=== PATIENT | male | born 1980 | race Two or more races ===

== ENCOUNTER 2018-04-03 13:22 | Emergency (ER) | payer MEDICAID ==
[~2018-04-03] VITALS: Ht 177.8 cm; Wt 83.9 kg
[~2018-04-03 13:22] MED LIST: IBUP-1953 PO
[2018-04-03] MEDS ORDERED: LIDOCAINE 1%-EPI 1:100,000 20 ML VIAL TP ONE (13:45)
[2018-04-03] MEDS ORDERED: IBUPROFEN 800 MG TABLET ONE (14:10)
--- NOTE | 2018-04-03 14:13 | NUR ---
Patient discharged to home in stable conditon. Written and verbal after care instructions given. Patient verbalizes understanding of instructions.
[2018-04-03] MEDS ORDERED: IBUPROFEN 800 MG TABLET PO ONE (14:15)
== END 2018-04-03 14:16 | disposition home or self-care (01) ==
LOC: ER 13:24
DX: S67.191A Crushing injury of left index finger, initial encounter (principal); L02.512 Cutaneous abscess of left hand; F17.200 Nicotine dependence, unspecified, uncomplicated; W20.8XXA Other cause of strike by thrown, projected or falling object, initial encounter; Y93.89 Activity, other specified; Y92.89 Other specified places as the place of occurrence of the external cause; Y99.8 Other external cause status
CPT/HCPCS: 10060; 73140; 99284; A4217; A4663; J3490

== ENCOUNTER 2018-12-06 07:27 | Emergency (ER) | payer MEDICAID, MEDICARE ==
[~2018-12-06] VITALS: Ht 180.3 cm; Wt 99.8 kg
--- NOTE | 2018-12-06 07:46 | NUR ---
Patient discharged to home in stable conditon. Written and verbal after care instructions given. Patient verbalizes understanding of instructions.
== END 2018-12-06 07:48 | disposition home or self-care (01) ==
LOC: ER 07:27
DX: L73.9 Follicular disorder, unspecified (principal); I25.2 Old myocardial infarction; F17.200 Nicotine dependence, unspecified, uncomplicated; Z79.1 Long term (current) use of non-steroidal anti-inflammatories (NSAID)
CPT/HCPCS: A4663

== ENCOUNTER 2019-10-11 08:34 | Emergency (ER) | payer MEDICAID, MEDICARE ==
[~2019-10-11] VITALS: Ht 180.3 cm; Wt 99.8 kg
[2019-10-11] MEDS ORDERED: HYDROCODONE/APAP 10-325 MG TABLET PO ONE (09:00)
--- NOTE | 2019-10-11 09:00 | NUR ---
Patient given written and verbal discharge instructions. Patient verbalizes understanding of instructions. Patient is ambulatory with steady gait. Refuses offer of skilled nursing placement. Patient given list of available shelters in surrounding area.
[2019-10-11] MEDS ORDERED: HYDROCODONE/APAP 10-325 MG TABLET ONE (09:06)
== END 2019-10-11 09:10 | disposition home or self-care (01) ==
LOC: ER 08:34
DX: K08.89 Other specified disorders of teeth and supporting structures (principal); K08.409 Partial loss of teeth, unspecified cause, unspecified class; I25.2 Old myocardial infarction; Z59.0 Homelessness
CPT/HCPCS: A4663

== ENCOUNTER 2019-10-11 21:46 | Emergency (ER) | payer MEDICAID ==
[~2019-10-11] VITALS: Ht 177.8 cm; Wt 90.7 kg
--- NOTE | 2019-10-11 22:10 | NUR ---
Dr. Erazo on bedside for MSE.
[2019-10-11] MEDS ORDERED: IBUPROFEN 800 MG TABLET ONE (22:22)
[2019-10-11] MEDS ORDERED: CLINDAMYCIN HCL 300 MG CAPSULE ONE (22:22)
[2019-10-11 22:29] VITALS: BP 135/9
--- NOTE | 2019-10-11 22:29 | NUR ---
Patient discharged to home in stable conditon. Written and verbal after care instructions given. Patient verbalizes understanding of instructions. Pt ambulated out of the ER with steady gait. All belongings with pt.
[2019-10-11] MEDS ORDERED: IBUPROFEN 800 MG TABLET PO ONE (22:30)
[2019-10-11] MEDS ORDERED: CLINDAMYCIN HCL 150 MG CAPSULE PO ONE (22:30)
== END 2019-10-11 22:30 | disposition home or self-care (01) ==
LOC: ER 21:46
DX: K08.89 Other specified disorders of teeth and supporting structures (principal); K02.9 Dental caries, unspecified; F17.200 Nicotine dependence, unspecified, uncomplicated; Z79.899 Other long term (current) drug therapy
CPT/HCPCS: A4663

== ENCOUNTER 2019-12-20 01:05 | Emergency (ER) | payer MEDICAID ==
[~2019-12-20] VITALS: Ht 177.8 cm; Wt 90.7 kg
--- NOTE | 2019-12-20 02:00 | NUR ---
Dr. Erazo at bedside for MSE.
[2019-12-20] MEDS ORDERED: CLINDAMYCIN HCL 150 MG CAPSULE ONE (02:28)
[2019-12-20] MEDS ORDERED: IBUPROFEN 800 MG TABLET ONE (02:28)
[2019-12-20] MEDS ORDERED: FAMOTIDINE 20 MG TABLET ONE (02:29)
[2019-12-20] MEDS ORDERED: FAMOTIDINE 20 MG TABLET PO ONE (02:30)
[2019-12-20] MEDS ORDERED: CLINDAMYCIN HCL 150 MG CAPSULE PO ONE (02:30)
[2019-12-20] MEDS ORDERED: IBUPROFEN 800 MG TABLET PO ONE (02:30)
--- NOTE | 2019-12-20 03:30 | NUR ---
Note enriqueone in EDM - 12/20/19 at 0332 by FANY Patient discharged to home in stable condition. Written and verbal after care instructions given. Patient verbalizes understanding of instructions. Stressed follow up or return to ER for worsening s/s. Patient ambulated out of ER with steady gait, no acute signs of distress, VSS, all belongings taken.
--- NOTE | 2019-12-20 03:32 | NUR ---
Patient given written and verbal discharge instructions. Patient verbalizes understanding of instructions. Patient is ambulatory with steady gait. Refuses offer of residential placement. Patient given list of available shelters in surrounding area. VSS, no acute signs of distress, all belongings taken, Patient provided with juice and water per patient request, will arrange own transportation out of hospital, refuses all other services at this time.
[2019-12-20 03:35] VITALS: BP 128/60
== END 2019-12-20 03:35 | disposition home or self-care (01) ==
LOC: ER 01:06
DX: K02.9 Dental caries, unspecified (principal); R10.13 Epigastric pain; F15.10 Other stimulant abuse, uncomplicated; Z59.0 Homelessness; I25.2 Old myocardial infarction; Z87.19 Personal history of other diseases of the digestive system; F17.210 Nicotine dependence, cigarettes, uncomplicated
CPT/HCPCS: A4663

== ENCOUNTER 2020-01-21 19:59 | Emergency (ER) | payer SELFPAY | END 2020-01-21 20:17 | disposition left against medical advice (07) | LOC: ER 20:15 | DX: Z75.3 Unavailability and inaccessibility of health-care facilities (principal); Z59.0 Homelessness ==

== ENCOUNTER 2021-12-24 02:28 | Emergency (ER) | payer OTHER ==
[~2021-12-24] VITALS: Ht 177.8 cm; Wt 99.8 kg
[2021-12-24] MEDS ORDERED: LIDOCAINE 2%-EPI 1:100,000 20 ML VIAL IJ ONE (03:00)
[2021-12-24] MEDS ORDERED: OXYCODONE/APAP 5-325 MG TABLET PO ONE (03:00)
[2021-12-24] MEDS ORDERED: LIDOCAINE 2%-EPI 1:100,000 20 ML VIAL ONE (03:01)
[2021-12-24] MEDS ORDERED: OXYCODONE/APAP 5-325 MG TABLET ONE (03:05)
--- NOTE | 2021-12-24 03:23 | NUR ---
Dr siegel at bedside for I&D
[2021-12-24] MEDS ORDERED: OXYC-128 PO (03:51)
[2021-12-24] MEDS ORDERED: SULF1TAB48 PO (03:51)
[2021-12-24] MEDS ORDERED: SULFAMETH/TRIMETH 800/160 MG TABLET PO ONE (04:00)
[2021-12-24] MEDS ORDERED: SULFAMETH/TRIMETH 800/160 MG TABLET ONE (04:01)
--- NOTE | 2021-12-24 04:05 | NUR ---
Applied dressing on I/D site as ordered.
--- NOTE | 2021-12-24 04:10 | NUR ---
Patient given written and verbal discharge instructions. Patient verbalizes understanding of instructions. Patient is ambulatory with steady gait. Refuses offer of [facility] placement. Patient given list of available shelters in surrounding area.
[2021-12-24 04:11] VITALS: BP 135/77
== END 2021-12-24 04:11 | disposition home or self-care (01) ==
LOC: ER 02:34
DX: L02.31 Cutaneous abscess of buttock (principal); L03.317 Cellulitis of buttock; Z59.00 Homelessness unspecified; F17.200 Nicotine dependence, unspecified, uncomplicated; I25.2 Old myocardial infarction
CPT/HCPCS: 87070; 87077; A4663

== ENCOUNTER 2021-12-27 06:21 | Emergency (ER) | payer OTHER ==
[~2021-12-27] VITALS: Ht 175.3 cm; Wt 77.1 kg
[~2021-12-27 06:21] MED LIST changes: +OXYC-128 PO; +SULF1TAB48 PO
[2021-12-27] MEDS ORDERED: IBUP-1955 PO (07:00)
--- NOTE | 2021-12-27 07:02 | NUR ---
Pt is in room #2b. Magda evaluated the pt.
--- NOTE | 2021-12-27 07:13 | NUR ---
PT WAS D/C'd TO HOME. D/C INSTRUCTIONS GIVEN TO THE PT BY DR HUNT.
[2021-12-27 07:14] VITALS: BP 137/88
== END 2021-12-27 08:21 | disposition home or self-care (01) ==
LOC: ER 06:24
DX: Z48.817 Encounter for surgical aftercare following surgery on the skin and subcutaneous tissue (principal); L02.31 Cutaneous abscess of buttock; Z59.00 Homelessness unspecified; I25.2 Old myocardial infarction
CPT/HCPCS: A4663

== ENCOUNTER 2022-05-02 11:45 | Emergency (ER) | payer OTHER ==
[~2022-05-02] VITALS: Ht 177.8 cm; Wt 99.8 kg
[~2022-05-02 11:45] MED LIST changes: +IBUP-1955 PO
[2022-05-02] MEDS ORDERED: SULF1TAB48 PO ×2 (12:19→12:31)
[2022-05-02] MEDS ORDERED: IBUP800T54 PO ×2 (12:19→12:31)
[2022-05-02] MEDS ORDERED: CEPH500C2 PO ×2 (12:19→12:31)
[2022-05-02] MEDS ORDERED: HYDROCODONE/APAP 10-325 MG TABLET PO ONE (12:30)
[2022-05-02] MEDS ORDERED: HYDROCODONE/APAP 10-325 MG TABLET ONE (12:30)
--- NOTE | 2022-05-02 12:30 | NUR ---
Pt arrived with c/o pain, swelling and redness on the L armpit, R thigh and pain on the R upper back. Denies headache, n/v. Med ordered was administered, well tolerated. Instructions were explained, pt verbalized unerstanding. Seen by Dr. Garcia for MSE.
--- NOTE | 2022-05-02 12:45 | NUR ---
Patient discharged to home in stable condition. Written and verbal after care instructions given. Patient verbalizes understanding of instructions. Stressed follow up or return to ER for worsening s/s.
[2022-05-02 12:55] VITALS: BP 132/78
== END 2022-05-02 12:45 | disposition home or self-care (01) ==
LOC: ER 11:45
DX: L73.2 Hidradenitis suppurativa (principal); L73.9 Follicular disorder, unspecified; F15.10 Other stimulant abuse, uncomplicated; I25.2 Old myocardial infarction
CPT/HCPCS: A4663

== ENCOUNTER 2024-01-14 13:51 | Emergency (ER) | payer OTHER ==
[~2024-01-14] VITALS: Ht 175.3 cm; Wt 90.7 kg
[~2024-01-14 13:51] MED LIST changes: +CEPH500C2 PO; -IBUP-1953 PO; -IBUP-1955 PO; +IBUP800T54 PO; -OXYC-128 PO
[2024-01-14] MEDS: IV NORMAL SALINE 1000 ML BAG IV ONE (14:15)
[2024-01-14] MEDS: CEFTRIAXONE 1 G in IV DEXTROSE 5% 50 ML IV ONE (14:15)
[2024-01-14] MEDS: ONDANSETRON 4 MG/2 ML VIAL IV ONE (14:15)
[2024-01-14] MEDS ORDERED: CEFTRIAXONE /D5W 50ML IVPB **ER PYXIS IV ONE (14:25)
[2024-01-14] MEDS ORDERED: VANCOMYCIN IV 200 ML ONE (14:25)
[2024-01-14] MEDS ORDERED: ONDANSETRON 4 MG/2 ML VIAL ONE (14:26)
[2024-01-14] MEDS ORDERED: MORPHINE SULFATE 4 MG/1 ML DISP.SYRIN ONE (14:26)
[2024-01-14] MEDS: MORPHINE SULFATE 2 MG/1 ML DISP.SYRIN IV ONE (14:30)
[2024-01-14 15:11] LABS: BASOPHILS % (AUTO) 0.3 % (0.0-2.0); EOSINOPHILS # (AUTO) 0.3 K/uL (0.0-0.7); EOSINOPHILS % (AUTO) 2.1 % (0.0-7.0); HEMATOCRIT 44.4 % (36.7-47.1); HEMOGLOBIN 14.7 g/dL (12.5-16.3); LYMPHOCYTES # (AUTO) 2.6 K/uL (0.8-4.8); LYMPHOCYTES % (AUTO) 21.1 % (20.5-51.5); MEAN CORPUSCULAR HEMOGLOBIN 28.9 uug (23.8-33.4); MEAN CORPUSCULAR HGB CONC 33 g/dL (32.5-36.3); MEAN CORPUSCULAR VOLUME 87.2 fL (73.0-96.2); MONOCYTES # (AUTO) 0.9 K/uL (0.1-1.30); NEUTROPHILS # (AUTO) 8.6 K/uL (1.8-8.9); NEUTROPHILS % (AUTO) 69.5 % (38.5-71.5); PLATELET COUNT (AUTO) 248 K/uL (152-348); RED CELL DISTRIBUTION WIDTH 14.2 % (12.1-16.2); WHITE BLOOD COUNT (AUTO) 12.4 K/uL (3.6-10.2)
[2024-01-14 15:18] LABS: CALCIUM 9.6 mg/dL (8.5-10.1); CARBON DIOXIDE 30 mmol/L (21-32); CHLORIDE 102 mmol/L (98-107); CREATININE 1.1 mg/dL (0.6-1.3); DIFFERENTIAL COMMENT 1; GLUCOSE 78 mg/dL (74-106); POTASSIUM 4.4 mmol/L (3.5-5.1); SODIUM SERUM 139 mmol/L (136-145); UREA NITROGEN, BLOOD 17 mg/dL (7-18)
[2024-01-14 15:30] LABS: ALANINE AMINOTRANSFERASE 26 U/L (16-63); ALBUMIN 3.7 g/dL (3.4-5.0); ALKALINE PHOSPHATASE 95 U/L (50-136); ASPARTATE AMINOTRANSFERASE 6 U/L (15-37); BILIRUBIN,DIRECT 0.1 mg/dL (0.0-0.2); BILIRUBIN,TOTAL 0.3 mg/dL (0.2-1.0); NT-PRO BNP 31 pg/mL (0-125); TOTAL PROTEIN, SERUM 7.6 g/dL (6.4-8.2)
[2024-01-14] MEDS: VANCOMYCIN IV 1,000 MG in IV DEXTROSE 5% 250 ML IV ONE (15:30)
[2024-01-14] MEDS ORDERED: CEPH500C2 PO (16:44)
[2024-01-14] MEDS ORDERED: HYDR-3972 PO (16:44)
[2024-01-14] MEDS ORDERED: SULF1TAB48 PO (16:44)
[2024-01-14] MEDS ORDERED: HYDROCODONE/APAP 5-325MG TABLET ONE (17:05)
[2024-01-14] MEDS: HYDROCODONE/APAP 5-325MG TABLET PO ONE (17:08)
[2024-01-14 17:15] VITALS: BP 133/70; TEMP 98; O2SAT 99
== END 2024-01-14 17:16 | disposition home or self-care (01) ==
LOC: ER 13:51
DX: L73.2 Hidradenitis suppurativa (principal); B35.3 Tinea pedis; L03.032 Cellulitis of left toe; I25.2 Old myocardial infarction; F17.200 Nicotine dependence, unspecified, uncomplicated; Z79.899 Other long term (current) drug therapy
CPT/HCPCS: 36415; 71045; 73660; 83605; 84484; 85025; 85730; 87040; 93005; A4606; A4663; J0696; J2270; J2405; J3370; J7040

== ENCOUNTER 2024-05-16 15:15 | Emergency (ER) | payer OTHER ==
[~2024-05-16] VITALS: Ht 175.3 cm; Wt 99.8 kg
[~2024-05-16 15:15] MED LIST changes: +HYDR-3972 PO
[2024-05-16 15:18] VITALS: O2SAT 99
[2024-05-16] MEDS ORDERED: LIDOCAINE HCL 1% 20 ML VIAL ONE (15:47)
[2024-05-16] MEDS ORDERED: LIDOCAINE 2%-EPI 1:100,000 20 ML VIAL ONE (15:50)
[2024-05-16] MEDS ORDERED: CEPH500C2 PO (17:12)
[2024-05-16] MEDS ORDERED: HYDR-3980 PO (17:12)
[2024-05-16] MEDS ORDERED: SULF1TAB48 PO (17:12)
[2024-05-16] MEDS ORDERED: HYDROCODONE/APAP 10-325 MG TABLET ONE (17:34)
[2024-05-16] MEDS: HYDROCODONE/APAP 10-325 MG TABLET PO ONE (17:35)
== END 2024-05-16 17:48 | disposition home or self-care (01) ==
LOC: ER 15:15
DX: L02.412 Cutaneous abscess of left axilla (principal); M54.50 Low back pain, unspecified; F15.10 Other stimulant abuse, uncomplicated; F12.90 Cannabis use, unspecified, uncomplicated; I25.2 Old myocardial infarction; F17.200 Nicotine dependence, unspecified, uncomplicated; Z87.19 Personal history of other diseases of the digestive system; Z79.899 Other long term (current) drug therapy
CPT/HCPCS: A4606; A4663; J3490

== ENCOUNTER 2024-05-18 10:59 | Emergency (ER) | payer OTHER ==
[~2024-05-18] VITALS: Ht 175.3 cm; Wt 99.8 kg
[~2024-05-18 10:59] MED LIST changes: +HYDR-3980 PO
[2024-05-18] MEDS ORDERED: HYDROCODONE/APAP 10-325 MG TABLET ONE (11:41)
[2024-05-18] MEDS: HYDROCODONE/APAP 10-325 MG TABLET PO ONE (11:43)
[2024-05-18 11:48] VITALS: BP 128/77; TEMP 97.8; O2SAT 99
== END 2024-05-18 11:48 | disposition home or self-care (01) ==
LOC: ER 10:59
DX: L73.2 Hidradenitis suppurativa (principal); I25.2 Old myocardial infarction; F17.200 Nicotine dependence, unspecified, uncomplicated; F12.90 Cannabis use, unspecified, uncomplicated; Z87.19 Personal history of other diseases of the digestive system
CPT/HCPCS: A4606; A4663

== ENCOUNTER 2024-09-06 15:57 | Inpatient (IN) | payer OTHER ==
[~2024-09-06] VITALS: Ht 175.3 cm; Wt 90.7 kg
[2024-09-06] MEDS: VANCOMYCIN IV 1,000 MG in IV DEXTROSE 5% 250 ML IV ONE (17:15)
[2024-09-06] MEDS ORDERED: PIPERACILLIN/TAZOBACTAM/D5W 50 ML IV ONE (17:36)
[2024-09-06] MEDS ORDERED: VANCOMYCIN IV 200 ML ONE (17:36)
[2024-09-06] MEDS ORDERED: MORPHINE SULFATE 2 MG/1 ML DISP.SYRIN ONE (17:37)
[2024-09-06] MEDS ORDERED: ONDANSETRON 4 MG/2 ML VIAL ONE (17:37)
[2024-09-06 17:38] LABS: BASOPHILS # (AUTO) 0.1 K/UL (0.0-0.2); BASOPHILS % (AUTO) 0.5 % (0.0-2.0); EOSINOPHILS # (AUTO) 0.1 K/uL (0.0-0.7); HEMATOCRIT 40.5 % (36.7-47.1); HEMOGLOBIN 13.3 g/dL (12.5-16.3); LYMPHOCYTES % (AUTO) 14.5 % (20.5-51.5); MEAN CORPUSCULAR HEMOGLOBIN 28.6 uug (23.8-33.4); MEAN CORPUSCULAR HGB CONC 33 g/dL (32.5-36.3); MONOCYTES # (AUTO) 0.8 K/uL (0.1-1.30); MONOCYTES % (AUTO) 5.6 % (0.0-11.0); NEUTROPHILS # (AUTO) 10.7 K/uL (1.8-8.9); NEUTROPHILS % (AUTO) 78.4 % (38.5-71.5); PLATELET COUNT (AUTO) 229 K/uL (152-348); RED BLOOD CELL COUNT(AUTO) 4.66 MIL/uL (4.06-5.63); RED CELL DISTRIBUTION WIDTH 13.7 % (12.1-16.2); WHITE BLOOD COUNT (AUTO) 13.6 K/uL (3.6-10.2)
[2024-09-06 17:39] LABS: DIFFERENTIAL COMMENT 1
[2024-09-06] MEDS: ONDANSETRON 4 MG/2 ML VIAL IV ONE (17:43)
[2024-09-06] MEDS: MORPHINE SULFATE 2 MG/1 ML DISP.SYRIN IV ONE (17:43)
[2024-09-06 18:01] LABS: ALANINE AMINOTRANSFERASE 30 U/L (16-63); ALBUMIN 3.4 g/dL (3.4-5.0); ALKALINE PHOSPHATASE 77 U/L (50-136); ASPARTATE AMINOTRANSFERASE 30 U/L (15-37); BILIRUBIN,DIRECT 0.1 mg/dL (0.0-0.2); BILIRUBIN,TOTAL 0.3 mg/dL (0.2-1.0); CALCIUM 9.3 mg/dL (8.5-10.1); CARBON DIOXIDE 26 mmol/L (21-32); CHLORIDE 103 mmol/L (98-107); CREATININE 1.1 mg/dL (0.6-1.3); GLUCOSE 109 mg/dL (74-106); NT-PRO BNP 92 pg/mL (0-125); POTASSIUM 4.4 mmol/L (3.5-5.1); SODIUM SERUM 137 mmol/L (136-145); TOTAL PROTEIN, SERUM 7.5 g/dL (6.4-8.2); UREA NITROGEN, BLOOD 13 mg/dL (7-18)
[2024-09-06] MEDS: PIPERACILLIN SODIUM/TAZOBACTAM 3.375 G in IV DEXTROSE 5% 50 ML IV ONE (18:01)
[2024-09-06 18:05] LABS: *BILIRUBIN,URIN NEGATIVE (NEGATIVE); *BLOOD, URINE NEGATIVE (NEGATIVE); *CLARITY,URINE CLEAR (CLEAR); *COLOR,URINE YELLOW (YELLOW); *KETONES,URINE NEGATIVE (NEGATIVE); *PROTEIN,URINE NEGATIVE (NEGATIVE); *UROBILINOGEN,URINE 0.2 E.U./dl (NORMAL); LEUKOCYTE ESTERASE ,URINE NEGATIVE (NEGATIVE); NITRITE, URINE NEGATIVE (NEGATIVE); UGLUCOSE NEGATIVE (NEGATIVE)
[2024-09-06] MEDS: IV NORMAL SALINE 1000 ML BAG IV ONE (18:14)
[2024-09-06] MEDS ORDERED: MORPHINE SULFATE 4 MG/1 ML DISP.SYRIN ONE (21:34)
[2024-09-06] MEDS: MORPHINE SULFATE 4 MG/1 ML DISP.SYRIN IV ONE (21:59)
[2024-09-06 23:00] VITALS: BP 127/66; TEMP 98.3; O2SAT 100
[2024-09-06] MEDS: HYDROMORPHONE 1 MG/1 ML DISP.SYRIN IV PRN (23:45)
[2024-09-06] MEDS ORDERED: IV 1/2NS 1000 ML 1,000 ML IV PRN (23:45)
[2024-09-06] MEDS ORDERED: ONDANSETRON 4 MG/2 ML VIAL IV PRN (23:45)
[2024-09-06] MEDS: IV 1/2NS 1000 ML 1,000 ML IV PRN (23:51)
[2024-09-07] MEDS: HYDROCODONE/APAP 5-325MG TABLET PO PRN (02:01)
[2024-09-07] MEDS: PANTOPRAZOLE SODIUM 40 MG TABLET.DR PO SCH (06:11)
[2024-09-07 06:30] VITALS: BP 120/50; TEMP 98.7; O2SAT 96
[2024-09-07] MEDS ORDERED: NAPR-1009 PO (09:25)
[2024-09-07 11:42] LABS: BASOPHILS % (AUTO) 0.4 % (0.0-2.0); EOSINOPHILS # (AUTO) 0.1 K/uL (0.0-0.7); EOSINOPHILS % (AUTO) 0.9 % (0.0-7.0); HEMATOCRIT 38.1 % (36.7-47.1); HEMOGLOBIN 12.8 g/dL (12.5-16.3); LYMPHOCYTES # (AUTO) 1.9 K/uL (0.8-4.8); LYMPHOCYTES % (AUTO) 16.1 % (20.5-51.5); MEAN CORPUSCULAR HEMOGLOBIN 28.9 uug (23.8-33.4); MEAN CORPUSCULAR HGB CONC 34 g/dL (32.5-36.3); MEAN CORPUSCULAR VOLUME 86.2 fL (73.0-96.2); MONOCYTES # (AUTO) 0.8 K/uL (0.1-1.30); NEUTROPHILS # (AUTO) 8.9 K/uL (1.8-8.9); NEUTROPHILS % (AUTO) 75.6 % (38.5-71.5); PLATELET COUNT (AUTO) 237 K/uL (152-348); RED BLOOD CELL COUNT(AUTO) 4.42 MIL/uL (4.06-5.63); RED CELL DISTRIBUTION WIDTH 14.2 % (12.1-16.2); WHITE BLOOD COUNT (AUTO) 11.7 K/uL (3.6-10.2)
[2024-09-07 11:48] VITALS: BP 103/54; TEMP 100.4; O2SAT 97
[2024-09-07 12:05] LABS: ALBUMIN 2.7 g/dL (3.4-5.0); BILIRUBIN,TOTAL 0.3 mg/dL (0.2-1.0); CALCIUM 8.8 mg/dL (8.5-10.1); CREATININE 1.1 mg/dL (0.6-1.3); MAGNESIUM 1.9 mg/dL (1.8-2.4); PHOSPHOROUS 2.9 mg/dL (2.5-4.9); POTASSIUM 4.2 mmol/L (3.5-5.1); TOTAL PROTEIN, SERUM 6.7 g/dL (6.4-8.2)
[2024-09-07] MEDS: ACETAMINOPHEN 325 MG TABLET PO PRN (12:21)
[2024-09-07] MEDS: PIPERACILLIN SODIUM/TAZOBACTAM 3.375 G in IV DEXTROSE 5% 50 ML IV SCH (14:26)
[2024-09-07] MEDS: VANCOMYCIN IV 1,250 MG in IV DEXTROSE 5% 250 ML IV SCH (15:32)
[2024-09-07 15:44] VITALS: BP 118/74; TEMP 99.6; O2SAT 100
== END 2024-09-07 22:12 | disposition short-term general hospital (02) | DRG 383 ==
LOC: ER 15:57 → MEDSURG3 22:02
PROVIDERS: ADMIT Internal Medicine
DX: L03.115 Cellulitis of right lower limb (principal); B95.62 Methicillin resistant Staphylococcus aureus infection as the cause of diseases classified elsewhere; L73.2 Hidradenitis suppurativa; F15.20 Other stimulant dependence, uncomplicated; F17.210 Nicotine dependence, cigarettes, uncomplicated; I25.2 Old myocardial infarction; L73.9 Follicular disorder, unspecified
CPT/HCPCS: 36415; 71045; 73590; 83605; 83735; 84100; 84484; 85025; 85730; 87040; 87086; A4663; G0378; J1171; J2270; J2405; J2543; J3370; J7040; J7050

== ENCOUNTER 2024-10-20 17:18 | Emergency (ER) | payer SELFPAY ==
[~2024-10-20] VITALS: Ht 175.3 cm; Wt 104.3 kg
[~2024-10-20 17:18] MED LIST changes: -HYDR-3972 PO; -HYDR-3980 PO; -IBUP800T54 PO; +NAPR-1009 PO
[2024-10-20] MEDS ORDERED: LIDOCAINE HCL 1% 20 ML VIAL ONE (17:45)
[2024-10-20] MEDS: LIDOCAINE HCL 1% 20 ML VIAL TP ONE (17:50)
[2024-10-20] MEDS ORDERED: SULF1TAB48 PO (17:51)
[2024-10-20] MEDS ORDERED: HYDR-3980 PO (17:51)
[2024-10-20] MEDS ORDERED: NEOMY/BACITRA/POLYMYXIN B OINT UD PACKET TP ONE (18:06)
[2024-10-20] MEDS: NEOMY/BACITRA/POLYMYXIN B OINT UD PACKET TP ONE (18:16)
[2024-10-20] MEDS ORDERED: SULFAMETH/TRIMETH 800/160 MG TABLET ONE (18:18)
[2024-10-20] MEDS: SULFAMETH/TRIMETH 800/160 MG TABLET PO ONE (18:19)
[2024-10-20 18:26] VITALS: BP 125/77; O2SAT 98
[2024-10-20] MEDS ORDERED: HYDROCODONE/APAP 10-325 MG TABLET PO ONE (18:30)
[2024-10-20] MEDS ORDERED: SULFAMETH/TRIMETH 800/160 MG TABLET PO ONE (18:30)
== END 2024-10-20 18:26 | disposition home or self-care (01) ==
LOC: ER 17:29
DX: L02.412 Cutaneous abscess of left axilla (principal); F17.200 Nicotine dependence, unspecified, uncomplicated
CPT/HCPCS: 99283; 10060; J3490; A4606; A4663

== ENCOUNTER 2024-12-04 17:21 | Emergency (ER) | payer OTHER ==
[~2024-12-04] VITALS: Ht 177.8 cm; Wt 100.7 kg
[~2024-12-04 17:21] MED LIST changes: +HYDR-3980 PO
[2024-12-04] MEDS ORDERED: DOXY100C5 PO (18:10)
[2024-12-04] MEDS ORDERED: CEFTRIAXONE 500 MG VIAL ONE (18:16)
[2024-12-04] MEDS: CEFTRIAXONE 500 MG VIAL IM ONE (18:19)
[2024-12-04] MEDS ORDERED: DOXYCYCLINE HYCLATE 100 MG TABLET ONE (18:52)
[2024-12-04] MEDS: DOXYCYCLINE HYCLATE 100 MG TABLET PO ONE (18:53)
[2024-12-04 19:02] VITALS: BP 138/77; O2SAT 98
[2024-12-04 19:03] LABS: HIV-1/2 ANTIBODY NON REACTIVE (NONREACTIVE)
[2024-12-04 19:04] LABS: HIV-1 p24 ANTIGEN REACTIVE (NONREACTIVE)
[2024-12-07 07:07] LABS: *CHLAMYDIA NAA Negative (Negative); *GC NAA Positive (Negative); *TRIC.VAG. NAA Negative (Negative)
[2024-12-08 02:08] LABS: HEPATITIS B SURFACE AB, QUAL Reactive (.); HEPATITIS B SURFACE AG Negative (Negative); HEPATITIS C VIRUS ANTIBODY Non Reactive (Non Reactive)
== END 2024-12-04 19:00 | disposition home or self-care (01) ==
LOC: ER 17:22
DX: A54.9 Gonococcal infection, unspecified (principal); R36.9 Urethral discharge, unspecified; F17.200 Nicotine dependence, unspecified, uncomplicated; Z79.899 Other long term (current) drug therapy
CPT/HCPCS: 99283; 86592; 87806; 36415; 96372; 86803; 87340; 87491; 86706; J0696; A4606; A4663

== ENCOUNTER 2025-01-03 20:05 | Emergency (ER) | payer OTHER ==
[~2025-01-03] VITALS: Ht 177.8 cm; Wt 99.8 kg
[~2025-01-03 20:05] MED LIST changes: +DOXY100C5 PO
[2025-01-03 21:50] LABS: *BILIRUBIN,URIN NEGATIVE (NEGATIVE); *BLOOD, URINE NEGATIVE (NEGATIVE); *CLARITY,URINE CLEAR (CLEAR); *COLOR,URINE YELLOW (YELLOW); *KETONES,URINE NEGATIVE (NEGATIVE); *PROTEIN,URINE TRACE (NEGATIVE); *UROBILINOGEN,URINE 0.2 E.U./dl (NORMAL); LEUKOCYTE ESTERASE ,URINE 1+ (NEGATIVE); NITRITE, URINE NEGATIVE (NEGATIVE); UGLUCOSE NEGATIVE (NEGATIVE)
[2025-01-03 21:53] LABS: RBC,URINE 0-3 /HPF (0-3)
[2025-01-03 21:59] LABS: *AMPHETAMINE, URINE POSITIVE (NEGATIVE); *BARBITURATE, URINE NEGATIVE (NEGATIVE); *BENZODIAZEPINE, URINE NEGATIVE (NEGATIVE); *CANNABINOID, URINE POSITIVE (NEGATIVE); *COCCAINE, URINE POSITIVE (NEGATIVE); *OPIATE, URINE NEGATIVE (NEGATIVE); *PHENCYCLIDINE SCREEN,URINE NEGATIVE (NEGATIVE); FENTANYL, URINE NEGATIVE (NEGATIVE)
[2025-01-03] MEDS ORDERED: DOXY100C5 PO (22:58)
[2025-01-03] MEDS ORDERED: AZITHROMYCIN 250 MG TABLET ONE (23:01)
[2025-01-03] MEDS ORDERED: CEFTRIAXONE 500 MG VIAL ONE (23:01)
[2025-01-03] MEDS ORDERED: PENICILLIN G BENZATHINE 2.4 MMU/4 ML DISP.SYRIN IM ONE (23:02)
[2025-01-03] MEDS ORDERED: LIDOCAINE HCL 1% 20 ML VIAL ONE (23:04)
[2025-01-03] MEDS: PENICILLIN G BENZATHINE 2.4 MMU/4 ML DISP.SYRIN IM ONE (23:07)
[2025-01-03] MEDS: CEFTRIAXONE 500 MG VIAL IM ONE (23:07)
[2025-01-03] MEDS: AZITHROMYCIN 250 MG TABLET PO ONE (23:07)
[2025-01-03 23:09] VITALS: BP 118/69; TEMP 98; O2SAT 98
== END 2025-01-03 23:28 | disposition home or self-care (01) ==
LOC: ER 20:05
DX: N34.2 Other urethritis (principal); A53.9 Syphilis, unspecified; F17.210 Nicotine dependence, cigarettes, uncomplicated; Z87.2 Personal history of diseases of the skin and subcutaneous tissue; Z60.2 Problems related to living alone
CPT/HCPCS: 99284; 87086; 96372 ×2; 87491; 80307; 81001; J0561; J0696; J3490; A4606; A4663; Q0144